=== PATIENT | female | born 1960 | race African-American/Black ===

== ENCOUNTER → 2017-02-16 | Outpatient (CLI) | payer OTHER ==
[~2017-02-16] MED LIST: BACTRIM DS TABL1 TA1 PO; KEFLEX PO; KEFLEX500 MG PO; KETOPROFEN PO; LORTAB 5/500 TA1 TA1 PO
--- NOTE | ~2017-02-16 | MR84 ---
[facility]. [facility] A Service of [facility] & [facility] RADIOLOGY TEXT RESULTS PATIENT: FRANC GUZMAN LOCATION: [facility] : 64 UNIT #: [id number] AGE: [address]: Louie Pritchard SEX: F ORDER DR: [id number] [facility] [address] [place], [place] [address] [id number] O MR#: [id number] Acc #: [id number] NAME: FRANC GUZMAN : 1960 SEX: F STUDY DATE/TIME: 02/16/2017 20:40 UNIT: [facility] ROOM: STUDY DESCRIPTION: MR Hip Wo Contrast Rt Attending Physician: Rosmery Pritchard M.D. Referring Physician: Rosmery Pritchard M.D. Ordering Physician: Staff Doctor Not On Primary Care Physician: No Primary Care Physician MRI CENTER REPORT This report is preliminary unless electronic signature is present. EXAM Right hip MRI without contrast, 02/16/17. HISTORY 57-year-old female with right hip pain for 3 months. No specific injury. No prior right hip surgery. COMPARISON Right hip x-rays, 11/15/16. TECHNIQUE Routine unenhanced multiplanar, multisequence high-field MR imaging of the pelvis and both hips was performed. FINDINGS No evidence of acute fracture or avascular necrosis in either hip. There is moderate to severe right hip joint space narrowing. Mild subchondral marrow edema in the right acetabulum and right femoral head suggesting moderate to high-grade chondromalacia. There is a small right hip effusion which is nonspecific. Mild right acetabular labral degeneration. Left hip joint space appears maintained. No subchondral marrow edema to suggest significant articular cartilage loss. No left hip effusion. No evidence of a left acetabular labral tear. There is mild insertional tendinopathy of the gluteus minimus and gluteus medius tendons bilaterally, without evidence of tear. No significant bursal inflammation. Common hamstring tendon origins are within normal limits. Pelvic musculature is unremarkable. Sacrum and SI joints are intact. There are multilevel degenerative changes in the visualized lumbar spine. Visualized visceral pelvis is unremarkable. IMPRESSION 1. Moderate right hip arthrosis, detailed above. No evidence of acute STS. [facility] A Service of [facility] & [facility] RADIOLOGY TEXT RESULTS PATIENT: FRANC GUZMAN [id number] [birth year] UNIT #: [id number] AGE: [address]: Louie Pritchard SEX: F ORDER DR: fracture or avascular necrosis. Small right hip effusion. 2. Mild insertional tendinopathy of the bilateral gluteus minimus and medius tendons without evidence of tear. 3. Multilevel degenerative changes of the visualized lumbar spine. Dictated by... Davidson John M.D. THIS IS AN ELECTRONICALLY VERIFIED REPORT Davidson John M.D. at 02/18/2017 9:09 AM CHAIM/ever TD: 02/17/2017 18:36 JOB #: [id number] MRI CENTER REPORT Page 1 of 1 COPY
== END | disposition home or self-care (01) ==
LOC: CMRI 02-14 16:00
DX: M25.551 Pain in right hip (principal); M87.00 Idiopathic aseptic necrosis of unspecified bone; M25.651 Stiffness of right hip, not elsewhere classified; M25.351 Other instability, right hip; M16.11 Unilateral primary osteoarthritis, right hip; M25.451 Effusion, right hip; M76.891 Other specified enthesopathies of right lower limb, excluding foot; M47.896 Other spondylosis, lumbar region
CPT/HCPCS: 73721

== ENCOUNTER → 2017-04-29 | Outpatient (CLI) | payer OTHER ==
--- NOTE | ~2017-04-29 | XA30 ---
[facility] A Service [facility] RADIOLOGY TEXT RESULTS PATIENT: FRANC GUZMAN LOCATION: [facility] : 64 UNIT #: [id number] AGE: [address]: Danis Edouard IV, MD SEX: F ORDER DR: [id number] [id number] [facility] [place], [place] [address] [id number] O MR#: [id number] Acc #: [id number] NAME: FRANC GUZMAN : 1960 SEX: F STUDY DATE/TIME: 04/29/2017 13:43 [facility] ROOM: STUDY DESCRIPTION: XA Arthrocentesis Major Joint Attending Physician: Danis Edouard M.D. Ordering Physician: Danis Edouard M.D. Primary Care Physician: No Primary Care Physician MEDICAL IMAGING REPORT This report is preliminary unless electronic signature is present EXAM Right hip injection, 04/29/2017. HISTORY Chronic right hip pain. PROCEDURE Informed consent was obtained. Skin site was selected with fluoroscopic guidance and marked, sterilely prepped and draped and locally anesthetized. A 22-gauge needle was used to access the right hip joint, and after contrast injection confirmed intraarticular needle tip position, aspiration was attempted, though no fluid could be obtained. Subsequently, 80 mg of Kenalog and about 3 mL of 0.5% Marcaine were injected intra-articularly. Contrast was also injected to ensure intraarticular needle tip position. FLUOROSCOPY Total fluoroscopy time 0.2 minutes with a single spot image obtained. IMPRESSION 1. Technically successful right hip injection with Depo-Medrol and Marcaine. No fluid could be aspirated. 2. Patient reported preprocedure pain level 10/10, and postprocedure pain level 0. Dictated by... Seb Sanchez M.D. [facility] A Service [facility] RADIOLOGY TEXT RESULTS PATIENT: FRANC GUZMAN LOCATION: [facility] : 64 UNIT #: [id number] AGE: [address]: Danis Edouard IV, MD SEX: F ORDER DR: THIS IS AN ELECTRONICALLY VERIFIED REPORT Seb Sanchez M.D. at 05/05/2017 5:02 PM SHAYAN/josias TD: 05/03/2017 13:43 JOB #: [id number] MEDICAL IMAGING REPORT Page 1 of 1 COPY
== END | disposition home or self-care (01) ==
LOC: CIVR 12:46
DX: M16.11 Unilateral primary osteoarthritis, right hip (principal); M25.351 Other instability, right hip
CPT/HCPCS: 77002; J3301; Q9966